=== PATIENT | male | born 1955 | race Caucasian/White ===

== ENCOUNTER 2024-01-22 08:32 | Outpatient (CLI) | payer OTHER | END 2024-01-22 08:35 | disposition home or self-care (01) | LOC: SONOGRAMA 08:32 | PROVIDERS: ATTEND Pathology Anatomic Pathology & Clinical Pathology | DX: E04.1 Nontoxic single thyroid nodule (principal) ==

== ENCOUNTER 2025-03-01 07:45 | Outpatient (CLI) | payer OTHER ==
[2025-03-01 09:53] LABS: CREATININE SERUM 0.96 mg/dL (0.70-1.30); PROSTATIC SPECIFIC ANTIGEN 3.64 NG/ML (0.010-4.00)
== END 2025-03-01 07:53 | disposition home or self-care (01) ==
LOC: LAB 07:45
PROVIDERS: ATTEND Urology
DX: N40.0 Benign prostatic hyperplasia without lower urinary tract symptoms (principal); N21.0 Calculus in bladder; R97.20 Elevated prostate specific antigen [PSA]

== ENCOUNTER 2025-03-03 09:53 | Outpatient (CLI) | payer OTHER | END 2025-03-03 09:55 | disposition home or self-care (01) | LOC: TOM 09:53 | PROVIDERS: ATTEND Urology | DX: N40.0 Benign prostatic hyperplasia without lower urinary tract symptoms (principal); R31.1 Benign essential microscopic hematuria | CPT/HCPCS: 74178; Q9965 ==

== ENCOUNTER 2025-03-05 12:20 | Outpatient (CLI) | payer OTHER | END 2025-03-05 12:23 | disposition home or self-care (01) | LOC: MRI 12:20 | PROVIDERS: ATTEND Internal Medicine Gastroenterology | DX: K63.5 Polyp of colon (principal); K44.9 Diaphragmatic hernia without obstruction or gangrene; Z86.0100 Personal history of colon polyps, unspecified; Z80.0 Family history of malignant neoplasm of digestive organs; K30 Functional dyspepsia; I81 Portal vein thrombosis | CPT/HCPCS: 74183; Q9965 ==

== ENCOUNTER 2025-03-12 09:32 | Outpatient (CLI) | payer OTHER ==
[2025-03-12 11:17] LABS: BASO % 0.4 % (0.1-1.2); EOS # 0.01 (0.04-0.54); EOS % 0.2 % (0.7-7.0); LYMPH # 0.38 (1.18-3.74); LYMPH % 7.6 % (19.3-53.1); MEAN PLATELET VOLUME 11.70 fl (9.4-12.4); MONO # 0.61 (0.24-0.82); MONO % 12.3 % (4.7-12.5); NEUT # 3.92 (1.56-6.13); NEUT % 78.9 % (34.0-71.1); RED CELL DISTRIBUTION WIDTH 12.8 % (11.6-14.4)
[2025-03-12 11:56] LABS: INR 1.14
[2025-03-12 12:07] LABS: % SATURACION 11.2 % (20-50); ALT/SGPT 50.0 U/L (12-78); AST/SGOT 25.0 U/L (15-37); BILIRUBIN TOTAL 0.96 mg/dL (0.3-1.2); BUN CREA RATIO 20.0 (7.0-25.0); CREATININE SERUM 0.92 mg/dL (0.70-1.30); FE 28.0 ug/dl (65-175); GFR 82.06; GLOBULINA 3.2 G/DL (2.4-3.5); GLUCOSE FASTING 98.0 mg/dL (65-100); LDH 129.0 U/L (87-241); OSMOLALITY SERUM 279.0 MOSM/KG (275-295)
[2025-03-12 15:09] LABS: FOLIC ACID 9.72 ng/ml (4.78-20)
[2025-03-14 09:08] LABS: HOMOCYSTEINE 15.3 umol/L (0.0-17.2)
[2025-03-14 13:08] LABS: ANTI CARDIO IGA < 9 APL U/mL (0-11); ANTI CARDIO IGG < 9 GPL U/mL (0-14); ANTI CARDIO IGM < 9 MPL U/mL (0-12)
== END 2025-03-12 09:41 | disposition home or self-care (01) ==
LOC: LAB 09:32
PROVIDERS: ATTEND Internal Medicine Hematology & Oncology
DX: D50.8 Other iron deficiency anemias (principal); I10 Essential (primary) hypertension; R74.02 Elevation of levels of lactic acid dehydrogenase [LDH]; K76.89 Other specified diseases of liver; D51.3 Other dietary vitamin B12 deficiency anemia; D68.8 Other specified coagulation defects; N40.1 Benign prostatic hyperplasia with lower urinary tract symptoms; E78.2 Mixed hyperlipidemia; I81 Portal vein thrombosis

== ENCOUNTER 2025-03-14 08:00 | Inpatient (IN) | payer OTHER ==
[~2025-03-14] VITALS: Ht 177.8 cm; Wt 83.9 kg
[2025-03-14] MEDS ORDERED: UROXATRAL10 MG (08:40)
[2025-03-14] MEDS ORDERED: ELIQUIS5 MG PO (08:40)
[2025-03-14] MEDS ORDERED: CIPRO500 MG (08:40)
[2025-03-14 09:50] LABS: BASO % 0.6 % (0.1-1.2); EOS # 0.08 (0.04-0.54); EOS % 1.1 % (0.7-7.0); LYMPH # 0.91 (1.18-3.74); LYMPH % 12.6 % (19.3-53.1); MEAN PLATELET VOLUME 11.00 fl (9.4-12.4); MONO # 0.84 (0.24-0.82); MONO % 11.6 % (4.7-12.5); NEUT # 5.34 (1.56-6.13); NEUT % 73.7 % (34.0-71.1); RED CELL DISTRIBUTION WIDTH 12.9 % (11.6-14.4)
[2025-03-14 09:56] LABS: URINE APPEARANCE Clear; URINE BILIRRUBIN Negative (NEGATIVE); URINE BLOOD Small; URINE COLOR Yellow; URINE GLUCOSE Negative (NEGATIVE); URINE KETONE Trace (NEGATIVE); URINE LEUKOCYTE Negative; URINE NITRATE Negative; URINE PROTEIN Negative (NEGATIVE); URINE UROBILINOGEN 1.0 E.U./dl
[2025-03-14 09:57] LABS: URINE BACTERIA 5.9 uL (0.0-1933); URINE EPITHELIAL CELLS 5.3 uL (0.0-38.8); URINE RBC 48.9 uL (0.0-20.8); URINE WBC 11.5 uL (0.0-23.2)
[2025-03-14 10:06] LABS: URINE CAST 0.29 uL (0.0-1.40)
[2025-03-14 10:08] LABS: ALT/SGPT 50.0 U/L (12-78); AST/SGOT 29.0 U/L (15-37); BILIRUBIN TOTAL 0.66 mg/dL (0.3-1.2); BUN CREA RATIO 18.0 (7.0-25.0); CREATININE SERUM 0.93 mg/dL (0.70-1.30); GFR 81.04; GLOBULINA 3.7 G/DL (2.4-3.5); GLUCOSE FASTING 102.0 mg/dL (65-100); OSMOLALITY SERUM 283.0 MOSM/KG (275-295)
[2025-03-14 10:11] LABS: ABG PH 7.442 (7.35-7.45); ABG PO2 91.5 mmHg (80-100); BICARBONATE 23.7 mmol/l (23-25)
[2025-03-14 10:14] LABS: o2 21 %
[2025-03-14] MEDS ORDERED: NITROGLYCERIN IN 5 % DEXTROSE 50 MG/250 ML BOTTLE IV ONE (10:30)
[2025-03-14] MEDS ORDERED: TICAGRELOR 90 MG TABLET PO STA (10:30)
[2025-03-14] MEDS ORDERED: NITROGLYCERIN IN 5 % DEXTROSE 50 MG/250 ML BOTTLE IV STA (10:30)
[2025-03-14] MEDS ORDERED: 0.9 % SODIUM CHLORIDE 1,000 ML IV STA (10:32)
[2025-03-14] MEDS ORDERED: ENOXAPARIN SODIUM 40 MG/0.4 ML SYRINGE SUBCUTANEO STA (10:52)
[2025-03-14] MEDS ORDERED: ASPIRIN 325 MG TABLET PO STA (10:54)
[2025-03-14] MEDS ORDERED: ENOXAPARIN SODIUM 80 MG/0.8 ML SYRINGE SUBCUTANEO ONE (11:06)
[2025-03-14] MEDS ORDERED: 0.9 % SODIUM CHLORIDE 1,000 ML IV SCH (19:30)
[2025-03-14 19:31] VITALS: BP 119/78
[2025-03-14] MEDS ORDERED: ATORVASTATIN CALCIUM 40 MG TABLET PO SCH (19:35)
[2025-03-14] MEDS ORDERED: CEFTRIAXONE SODIUM 2,000 MG in 0.9 % SODIUM CHLORIDE 100 ML IV SCH (19:35)
[2025-03-14] MEDS ORDERED: ACETAMINOPHEN 500 MG GEL..CAP PO PRN (19:45)
[2025-03-14] MEDS ORDERED: CEFTRIAXONE SODIUM 2,000 MG VIAL ONE (20:07)
[2025-03-14 20:53] LABS: INR 1.1
[2025-03-14 20:55] LABS: D DIMER < 0.19 MG/L
[2025-03-14] MEDS ORDERED: ENOXAPARIN SODIUM 80 MG/0.8 ML SYRINGE SUBCUTANEO SCH (21:00)
[2025-03-14 21:34] LABS: COVID-19 AG NEGATIVE (NEGATIVE)
[2025-03-14 23:10] VITALS: BP 112/74; O2SAT 94
[2025-03-15] VITALS (21 sets, daily range): BP systolic 93–141; BP diastolic 60–95; O2SAT 93–100
[2025-03-15 02:36] LABS: CHOL HDL RATIO 5.2 (0-5.0); HDL 30 mg/dl (40-60); LDL 96 mg/dl (0-130); VLDL 30 (0-39)
[2025-03-15] MEDS ORDERED: TICAGRELOR 90 MG TABLET PO SCH (05:00)
[2025-03-15] MEDS ORDERED: TICAGRELOR 90 MG TABLET PO ONE (06:04)
[2025-03-15] MEDS ORDERED: TAMSULOSIN HCL 0.4 MG CAP PO ONE (08:20)
[2025-03-15] MEDS ORDERED: FAMOTIDINE/PF 20 MG/2 ML VIAL ONE (08:21)
[2025-03-15] MEDS ORDERED: ENOXAPARIN SODIUM 80 MG/0.8 ML SYRINGE SUBCUTANEO ONE (08:21)
[2025-03-15] MEDS ORDERED: CEFTRIAXONE SODIUM 2,000 MG VIAL ONE (08:21)
[2025-03-15] MEDS ORDERED: TAMSULOSIN HCL 0.4 MG CAP PO SCH (09:00)
[2025-03-15] MEDS ORDERED: ASPIRIN 81 MG TAB.CHEW PO SCH (09:00)
[2025-03-15] MEDS ORDERED: FAMOTIDINE/PF 20 MG in 0.9 % SODIUM CHLORIDE 8 ML IV PUSH SCH (09:00)
[2025-03-15] MEDS ORDERED: SODIUM CHLORIDE 0.45 % 1,000 ML IV SCH (15:00)
[2025-03-15] MEDS ORDERED: PANTOPRAZOLE SODIUM 40 MG TABLET.DR PO SCH (21:00)
[2025-03-16] VITALS (14 sets, daily range): BP systolic 106–150; BP diastolic 60–88; O2SAT 94–100
[2025-03-16] MEDS ORDERED: METOPROLOL SUCCINATE 25 MG TAB.SR.24H PO SCH ×2 (09:00)
[2025-03-16] MEDS ORDERED: ATORVASTATIN CALCIUM 40 MG TABLET PO SCH (09:00)
[2025-03-17] VITALS (8 sets, daily range): BP systolic 107–134; BP diastolic 74–80; O2SAT 94–100
[2025-03-17] MEDS ORDERED: METOPROLOL SUCCINATE 50 MG TAB.SR.24H PO SCH (09:00)
[2025-03-17 11:48] LABS: FOLIC ACID 9.12 ng/ml (4.78-20)
[2025-03-17 15:47] LABS: BASO % 0.5 % (0.1-1.2); EOS # 0.14 (0.04-0.54); EOS % 1.5 % (0.7-7.0); LYMPH # 1.33 (1.18-3.74); LYMPH % 14.4 % (19.3-53.1); MEAN PLATELET VOLUME 10.90 fl (9.4-12.4); MONO # 0.70 (0.24-0.82); MONO % 7.6 % (4.7-12.5); NEUT # 6.86 (1.56-6.13); NEUT % 74.2 % (34.0-71.1); RED CELL DISTRIBUTION WIDTH 12.8 % (11.6-14.4)
[2025-03-17 16:09] LABS: INR 1.11
[2025-03-17 16:17] LABS: ALT/SGPT 162.0 U/L (12-78); AST/SGOT 134.0 U/L (15-37); BILIRUBIN TOTAL 0.87 mg/dL (0.3-1.2); BUN CREA RATIO 13.0 (7.0-25.0); CREATININE SERUM 1.05 mg/dL (0.70-1.30); GFR 70.45; GLOBULINA 3.2 G/DL (2.4-3.5); GLUCOSE FASTING 89.0 mg/dL (65-100); OSMOLALITY SERUM 283.0 MOSM/KG (275-295)
[2025-03-18 01:37] VITALS: O2SAT 90
[2025-03-18 01:48] VITALS: BP 137/82; O2SAT 97
[2025-03-18 05:44] VITALS: O2SAT 97
[2025-03-18 08:37] VITALS: BP 114/73; O2SAT 97
[2025-03-18 10:36] VITALS: O2SAT 97
[2025-03-18 11:12] LABS: CA 19-9 18 U/mL (0-35)
[2025-03-18 11:39] LABS: FECAL LEUKOCYTES NEGATIVE (NEGATIVE)
[2025-03-18 13:08] LABS: HOMOCYSTEINE 14.0 umol/L (0.0-17.2)
[2025-03-19 09:11] LABS: PROTEIN C ANTIGEN 65 % (60-150)
[2025-03-19 17:12] LABS: ANTI-THROMBIN III 104 % (75-135); VON WILLERBRAND ANTIGEN 127 % (50-200)
== END 2025-03-18 14:13 | disposition designated cancer center or children's hospital (05) | DRG 282 ==
LOC: ER 08:00 → ICU-2 20:03 → MEDI 03-16 09:59
PROVIDERS: General Practice; ADMIT Internal Medicine; ATTEND Internal Medicine
PROC: BW24YZZ Computerized Tomography (CT Scan) of Chest and Abdomen using Other Contrast (ICD-10-PCS; 2025-03-14)
PROC: B54DZZZ Ultrasonography of Bilateral Lower Extremity Veins (ICD-10-PCS; 2025-03-14)
PROC: B24BZZZ Ultrasonography of Heart with Aorta (ICD-10-PCS; 2025-03-14)
PROC: 4A12X4Z Monitoring of Cardiac Electrical Activity, External Approach (ICD-10-PCS; principal; 2025-03-16)
DX: I21.4 Non-ST elevation (NSTEMI) myocardial infarction (principal); I35.1 Nonrheumatic aortic (valve) insufficiency; Z86.718 Personal history of other venous thrombosis and embolism; Z79.01 Long term (current) use of anticoagulants; I87.2 Venous insufficiency (chronic) (peripheral)